=== PATIENT | female | born 1980 | race Caucasian/White ===

== ENCOUNTER → 2018-12-20 | Outpatient (CLI) | payer BC ==
--- NOTE | 2018-12-20 12:22 | CT ---
EXAMINATION TYPE: CT abdomen pelvis wo con DATE OF EXAM: 12/20/2018 COMPARISON: None HISTORY: 38-year-old female Lower abdominal pain CT DLP: 314.5 mGycm. Automated exposure control for dose reduction was used. TECHNIQUE: Contiguous axial scanning of the abdomen and pelvis without IV contrast. Coronal and sagit kel reconstructions performed. FINDINGS: Heart normal size without pericardial effusion. Lung bases clear without pleural effusion Noncontrast appearance of the liver, adrenal glands, kidneys, spleen, and pancreas show no gross abno rmality. 9 mm gallstone. No abnormal gallbladder distention. Small fatty umbilical hernia. No dilated small bowel, free fluid, or free air. Scattered nonenlarged and borderline sized mesenteric lymph nodes measuring up to 6 mm. Scattered non enlarged and borderline sized retroperitoneal lymph nodes measuring up to 7 mm. No dilated small bowel, free fluid, or free air. Portions of a normal appendix are visualized, coronal image 29. The distal aspect of the appendix ext ends into the right adnexa and becomes obscured by adjacent structures. Some fat stranding noted within the lower abdomen and pelvis. Muscle conference or bladder wall thick ening. Uterus anteverted. Possible thickening in the right adnexa. There is some right adnexal and cu l-de-sac mild to moderate free fluid. Left ovary appears overall normal on this noncontrast study. Bones: No osseous destructive process. IMPRESSION: 1. There seems to be inflammation centered in the lower abdomen and pelvis. The exact origin of the inflammation is not clearly delineated. There seems to be some thickening in the right adnexa. Consid er the possibility of a right tubo-ovarian etiology in the setting of PID. The distal aspect of the a ppendix also extends into this region and becomes obscured. The proximal portion of the appendix is s een and appears normal. 2. Circumferential bladder wall thickening. Correlate to exclude cystitis. 3. Mild to moderate right-sided cul-de-sac free fluid. 4. Scattered nonenlarged and borderline sized lymph nodes likely reactive measuring up to 7 mm. 5. 9 mm gallstone.
== END | disposition home or self-care (01) ==
LOC: RADCTMAIN 11:24
PROVIDERS: ATTEND Physician Assistant
DX: N32.89 Other specified disorders of bladder (principal)
CPT/HCPCS: 74176

== ENCOUNTER 2018-12-30 13:12 | Emergency (ER) | payer BC ==
[2018-12-30 13:36] VITALS: RESP 18
[2018-12-30] MEDS ORDERED: MORPHINE SULFATE 2 MG/ML SYRINGE IVP STA (14:38)
[2018-12-30] MEDS ORDERED: diphenhydrAMINE 50 MG/ML 1 ML VIAL IVP STA (14:51)
[2018-12-30 15:01] LABS: Basophils % (A) 1 %; Eosinophils # (A) 0.1 k/uL (0-0.7); Eosinophils % (A) 1 %; HCT 39.2 % (34.0-46.0); HGB 13.3 gm/dL (11.4-16.0); Lymphocytes # (A) 2.6 k/uL (1.0-4.8); Lymphocytes % (A) 33 %; MCH 28.8 pg (25.0-35.0); MCHC 33.9 g/dL (31.0-37.0); MCV 84.9 fL (80.0-100.0); Mean Platelet Volume 6.1; Monocytes # (A) 0.4 k/uL (0-1.0); Monocytes % (A) 5 %; Neutrophils # (A) 4.5 k/uL (1.3-7.7); Neutrophils % (A) 58 %; Platelet Count 436 k/uL (150-450); RBC 4.62 m/uL (3.80-5.40); RDW 13.4 % (11.5-15.5); WBC 7.8 k/uL (3.8-10.6)
[2018-12-30 15:09] LABS: ALT 25 U/L (9-52); AST 21 U/L (14-36); African American GFR (CKD) >90 (>60 ml/min/1.73 sqM); Albumin 4.3 g/dL (3.5-5.0); Alkaline Phosphatase 74 U/L (38-126); Anion Gap 9 mmol/L; Blood Urea Nitrogen 15 mg/dL (7-17); Calcium 9.7 mg/dL (8.4-10.2); Carbon Dioxide 27 mmol/L (22-30); Chloride 105 mmol/L (98-107); Glucose 88 mg/dL (74-99); Non-African American GFR(CKD) >90 (>60 ml/min/1.73 sqM); Sodium 141 mmol/L (137-145); Total Bilirubin 0.2 mg/dL (0.2-1.3); Total Protein 7.7 g/dL (6.3-8.2)
[2018-12-30] MEDS ORDERED: SODIUM CHLORIDE 0.9% 1,000 ML IV ONE (15:29)
[2018-12-30] MEDS ORDERED: SODIUM CHLORIDE 0.9% 500 ML 500 ML IV ONE (15:29)
[2018-12-30] MEDS ORDERED: SODIUM CHLORIDE 0.9% 1,000 ML IV SCH (15:30)
--- NOTE | 2018-12-30 16:07 | US ---
EXAMINATION TYPE: US pelvic complete plus Dopplers DATE OF EXAM: 12/30/2018 COMPARISON: CT 2019 CLINICAL HISTORY: 38-year-old female r/o tubo ovarian abscess. Pelvic pain and irregular bleeding x 2 weeks, 5, para 4, 1, history of 4 c-sections and tubal ligation. TECHNIQUE: Transvaginal ER exam. Color Doppler and spectral waveform analysis of the ovarian arteries and veins. Date of LMP: 3+ weeks ago FINDINGS: EXAM MEASUREMENTS: Uterus: 9.3 x 4.8 x 4.9 cm Endometrial Stripe: 0.8 cm Right Ovary: 3.6 x 1.9 x 2.3 cm Left Ovary: 2.4 x 1.3 x 2.1 cm 1. Uterus: Small scar. Anteverted. 2. Endometrium: Heterogeneous fluid within the endocervical canal. Otherwise, normal thickness strip e. 3. Right Ovary: 1.5 x 1.1 x 1.3cm hypoechoic area, likely corpus luteum. 4. Left Ovary: wnl Spectral, color and waveform doppler imaging shows good arterial and venous flow within the ovaries ; there is no evidence for ovarian torsion. 5. Bilateral Adnexa: wnl 6. Posterior cul-de-sac: wnl IMPRESSION: 1. Small scar. Some heterogeneous fluid within the endocervical canal, probably some hemorr hagic debris.. 2. No sonographic evidence for ovarian torsion. Suspect a 1.5 cm corpus luteum in the right ovary.
--- NOTE | 2018-12-30 16:44 | ED ---
Abdominal Pain HPI - General Chief Complaint: Abdominal Pain Stated Complaint: POSS SEPSIS Time Seen by Provider: 12/30/18 14:14 Source: patient Mode of arrival: ambulatory Limitations: no limitations - History of Present Illness Initial Comments: 38 or female presenting for rule out sepsis and pelvic pain 2 weeks. Patient states that she was diagnosed with PID approximately 10 days ago. She states she has been on antibiotics Flagyl and doxycycline and has been given one IM dose of ceftriaxone. Patient states all STD testing was negative. She states cultures were positive for group A group B strep. Patient denies fevers. She states she has had vaginal bleeding for 2 weeks. She states she did not have large amount of discharge, until she began taking the antibiotics. Patient states she continues to have vaginal bleeding and pelvic pain b/l. Denies unilateral pain. Denies upper abdominal pain, diarrhea, vomiting, decreased appeptite. When patient went to her PCP today she was told she needed to come to the ER given symptoms were lasting long and she could become septic. Patient appears well, nontoxic is acceptable VS upon arrival no tachycardia, no fever. BP stable. Patient has had previous tubal ligation denies . - Related Data Previous Rx's Medication Instructions Recorded Cephalexin [Keflex] 500 mg PO Q12HR 5 Days #10 cap 12/30/18 Allergies Allergy/AdvReac Type Severity Reaction Status Date / Time No Known Allergies Allergy Verified 12/30/18 13:30 Review of Systems ROS Statement: Those systems with pertinent positive or pertinent negative responses have been documented in the HPI. ROS Other: All systems not noted in ROS Statement are negative. Past Medical History Past Medical History: No Reported History History of Any Multi-Drug Resistant Organisms: None Reported Past Surgical History: Section Additional Past Surgical History / Comment(s): c section x 4 Past Psychological History: No Psychological Hx Reported Smoking Status: Never smoker Past Alcohol Use History: None Reported Past Drug Use History: None Reported General Exam - General Exam Comments Initial Comments: General: The patient is awake and alert, in no distress, and does not appear acutely ill. Eye: +3 mm pupils are equal, round and reactive to light, extra-ocular movements are intact. No nystagmus. There is normal conjunctiva bilaterally. No signs of icterus. Ears, nose, mouth and throat: There are moist mucous membranes and no oral lesions. Neck: The neck is supple, there is no tenderness or JVD. Cardiovascular: There is a regular rate and rhythm. No murmur, rub or gallop is appreciated. Respiratory: Lungs are clear to auscultation, respirations are non-labored, breath sounds are equal. No wheezes, stridor, rales, or rhonchi. Gastrointestinal: Soft, non-distended, mild tenderness to palpation of the lower pelvic region slightly increased on left side in comparison with right, no McBUrneys pouint tenderness and remaining abdomen is without pain, masses or organomegaly noted. There is no rebound or guarding present. No CVA tenderness. Bowel sounds are unremarkable. Pelvic exam revealed no discharge, scant amount of blood cervical os closed. No cervical motion tenderness and minimal left- sided adnexal tenderness no right-sided tenderness. Musculoskeletal: Normal ROM, no tenderness. Strength 5/5. Sensation intact. Pulses equal bilaterally 2+. Neurological: A&O x 3. CN II-XII intact grossly, There are no obvious motor or sensory deficits. Coordination appears grossly intact. Speech is normal. Skin: Skin is warm and dry and no rashes or lesions are noted. Psychiatric: Cooperative, appropriate mood & affect, normal judgment. Limitations: no limitations Course Vital Signs 12/30/18 12/30/18 13:30 17:02 Temperature 97.8 F 98.4 F Pulse Rate 88 78 Respiratory 18 18 Rate Blood Pressure 108/74 111/73 O2 Sat by Pulse 99 100 Oximetry Medical Decision Making - Medical Decision Making 38yo female presenting for pelvic pain and vaginal bleeding 2 weeks. Sent to rule out sepsis. Patient is afebrile no tachycardia blood pressure stable with normal white count patient is minimal tenderness on examination. Pelvic exam revealed vaginal bleeding otherwise no findings I feel this is more consistent with dysfunctional uterine bleeding as patient did she is not supposed to start menstruation for 2 weeks. I review patient's previous imaging studies there is no tenderness at McBurney's point, patient eating and room afebrile and no guarding or rebound tenderness. 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 Discussed case wtih Dr. Quiles who reviewd imaging and labs, discussing history and he is agreeable with discharge at this time. - Lab Data Result diagrams: 12/30/18 14:48 12/30/18 14:48 Lab Results 12/30/18 12/30/18 12/30/18 Range/Units 14:48 14:48 14:48 WBC 7.8 (3.8-10.6) k/uL RBC 4.62 (3.80-5.40) m/uL Hgb 13.3 (11.4-16.0) gm/dL Hct 39.2 (34.0-46.0) % MCV 84.9 (80.0-100.0) fL MCH 28.8 (25.0-35.0) pg MCHC 33.9 (31.0-37.0) g/dL RDW 13.4 (11.5-15.5) % Plt Count 436 (150-450) k/uL Neutrophils % 58 % Lymphocytes % 33 % Monocytes % 5 % Eosinophils % 1 % Basophils % 1 % Neutrophils # 4.5 (1.3-7.7) k/uL Lymphocytes # 2.6 (1.0-4.8) k/uL Monocytes # 0.4 (0-1.0) k/uL Eosinophils # 0.1 (0-0.7) k/uL Basophils # 0.0 (0-0.2) k/uL Sodium 141 (137-145) mmol/L Potassium 4.0 (3.5-5.1) mmol/L Chloride 105 (98-107) mmol/L Carbon Dioxide 27 (22-30) mmol/L Anion Gap 9 mmol/L BUN 15 (7-17) mg/dL Creatinine 0.81 (0.52-1.04) mg/dL Est GFR (CKD-EPI)AfAm >90 (>60 ml/min/1.73 sqM) Est GFR (CKD-EPI)NonAf >90 (>60 ml/min/1.73 sqM) Glucose 88 (74-99) mg/dL Plasma Lactic Acid Edgard (0.7-2.0) mmol/L Calcium 9.7 (8.4-10.2) mg/dL Total Bilirubin 0.2 (0.2-1.3) mg/dL AST 21 (14-36) U/L ALT 25 (9-52) U/L Alkaline Phosphatase 74 (38-126) U/L Total Protein 7.7 (6.3-8.2) g/dL Albumin 4.3 (3.5-5.0) g/dL Urine Color Urine Appearance (Clear) Urine pH (5.0-8.0) Ur Specific [place] (1.001-1.035) Urine Protein (Negative) Urine Glucose (UA) (Negative) Urine Ketones (Negative) Urine Blood (Negative) Urine Nitrite (Negative) Urine Bilirubin (Negative) Urine Urobilinogen (<2.0) mg/dL Ur Leukocyte Esterase (Negative) Urine RBC (0-5) /hpf Urine WBC (0-5) /hpf Ur Squamous Epith Cells (0-4) /hpf Urine Bacteria (None) /hpf Urine Mucus (None) /hpf Urine HCG, Qual Not Detected (Not Detectd) Trichomonas Ag (Rapid) (Negative) 12/30/18 12/30/18 12/30/18 Range/Units 14:48 14:48 14:48 WBC (3.8-10.6) k/uL RBC (3.80-5.40) m/uL Hgb (11.4-16.0) gm/dL Hct (34.0-46.0) % MCV (80.0-100.0) fL MCH (25.0-35.0) pg MCHC (31.0-37.0) g/dL RDW (11.5-15.5) % Plt Count (150-450) k/uL Neutrophils % % Lymphocytes % % Monocytes % % Eosinophils % % Basophils % % Neutrophils # (1.3-7.7) k/uL Lymphocytes # (1.0-4.8) k/uL Monocytes # (0-1.0) k/uL Eosinophils # (0-0.7) k/uL Basophils # (0-0.2) k/uL Sodium (137-145) mmol/L Potassium (3.5-5.1) mmol/L Chloride (98-107) mmol/L Carbon Dioxide (22-30) mmol/L Anion Gap mmol/L BUN (7-17) mg/dL Creatinine (0.52-1.04) mg/dL Est GFR (CKD-EPI)AfAm (>60 ml/min/1.73 sqM) Est GFR (CKD-EPI)NonAf (>60 ml/min/1.73 sqM) Glucose (74-99) mg/dL Plasma Lactic Acid Edgard 1.1 (0.7-2.0) mmol/L Calcium (8.4-10.2) mg/dL Total Bilirubin (0.2-1.3) mg/dL AST (14-36) U/L ALT (9-52) U/L Alkaline Phosphatase (38-126) U/L Total Protein (6.3-8.2) g/dL Albumin (3.5-5.0) g/dL Urine Color Red Urine Appearance Turbid H (Clear) Urine pH 5.0 (5.0-8.0) Ur Specific [place] 1.024 (1.001-1.035) Urine Protein 1+ H (Negative) Urine Glucose (UA) Negative (Negative) Urine Ketones Negative (Negative) Urine Blood Large H (Negative) Urine Nitrite Negative (Negative) Urine Bilirubin Negative (Negative) Urine Urobilinogen <2.0 (<2.0) mg/dL Ur Leukocyte Esterase Small H (Negative) Urine RBC >182 H (0-5) /hpf Urine WBC 41 H (0-5) /hpf Ur Squamous Epith Cells 25 H (0-4) /hpf Urine Bacteria Moderate H (None) /hpf Urine Mucus Many H (None) /hpf Urine HCG, Qual (Not Detectd) Trichomonas Ag (Rapid) Negative (Negative) Disposition Clinical Impression: Pelvic pain Disposition: HOME SELF-CARE Condition: Good Instructions (If sedation given, give patient instructions): Pelvic Pain in Women (ED) Additional Instructions: Please use medication as discussed. Please follow-up with family doctor in the next 2 days, and OBGYN in next week. Please return to emergency room if the symptoms increase or worsen or for any other concerns. Prescriptions: Cephalexin [Keflex] 500 mg PO Q12HR 5 Days #10 cap Is patient prescribed a controlled substance at d/c from ED?: No Referrals: Joe Haider MD [Primary Care Provider] - 1-2 days Time of Disposition: 16:49
[2018-12-30] MEDS ORDERED: ACET/COD 300 MG/30 MG STARTER PACK 6 TAB BTL PO STA (16:49)
[2018-12-30 17:00] LABS: Appearance,Urine Turbid (Clear); Bacteria,Urine Moderate /hpf; Bilirubin,Urine Negative (Negative); Blood,Urine Large (Negative); Color,Urine Red; Glucose,Urine (UA) Negative (Negative); Ketones,Urine Negative (Negative); Leukocyte Esterase,Urine Small (Negative); Mucus,Urine Many /hpf; Nitrite,Urine Negative (Negative); Protein,Urine 1+ (Negative); RBC,Urine >182 /hpf (0-5); Specific Gravity,Urine 1.024 (1.001-1.035); Squamous Epithelial Cell,Urine 25 /hpf (0-4); Urobilinogen,Urine <2.0 mg/dL (<2.0); WBC,Urine 41 /hpf (0-5)
[2018-12-30 17:03] VITALS: BP 111/73; PULSE 78; TEMP 98.4
[2018-12-31 13:46] LABS: C. trachomatis,PCR Negative (Neg,Equiv); Chlamydia trachomatis Source Vagina
[2018-12-31 14:00] LABS: N. gonorrhoeae,PCR Negative (Neg,Equiv); Neisseria Source Vagina
== END 2018-12-30 17:18 | disposition home or self-care (01) ==
LOC: EC 13:12
DX: R10.2 Pelvic and perineal pain (principal); N93.9 Abnormal uterine and vaginal bleeding, unspecified; N73.9 Female pelvic inflammatory disease, unspecified; B95.1 Streptococcus, group B, as the cause of diseases classified elsewhere; Z98.51 Tubal ligation status; Z98.890 Other specified postprocedural states
CPT/HCPCS: 36415; 80053; 83605; 85025; 81001; 81025; 87040; 87808; 87491; 87591; 87070; 93975; 76830; 99284; 96374; 96375; 96361; J1200; J2270

== ENCOUNTER → 2020-01-21 | Outpatient (CLI) | payer OTHER ==
--- NOTE | 2020-01-21 11:40 | US ---
EXAMINATION TYPE: US pelvic complete DATE OF EXAM: 01/21/2020 COMPARISON: US 12/30/2018 CLINICAL HISTORY: R10.2 pelvic pain, N92.8. TECHNIQUE: . Transabdominal sonographic images of the pelvis were acquired. Patient did not want tr ansvaginal imaging Date of LMP: 01/19/2020 EXAM MEASUREMENTS: Uterus: 9.1 x 4.5 x 5.1 cm Endometrial Stripe: 0.5 cm Right Ovary: 3.0 x 1.6 x 1.6 cm Left Ovary: 2.2 x 1.8 x 1.5 cm 1. Uterus: Anteverted wnl 2. Endometrium: wnl 3. Right Ovary: wnl 4. Left Ovary: wnl 5. Bilateral Adnexa: wnl 6. Posterior cul-de-sac: wnl IMPRESSION: Normal pelvic ultrasound
== END | disposition home or self-care (01) ==
LOC: RADUSWWP 07:03
PROVIDERS: ATTEND Obstetrics & Gynecology
DX: R10.2 Pelvic and perineal pain (principal); N93.8 Other specified abnormal uterine and vaginal bleeding
CPT/HCPCS: 76856

== ENCOUNTER → 2021-12-13 | Outpatient (CLI) | payer BC ==
--- NOTE | 2021-12-13 09:02 | MM ---
Reason for Exam: Clinical finding. Baseline mammogram. Indicated Problems: Pain of the right side (Global) for 1 Year(s) : pt has rt breast itchiness/pain for 1 year, dr cook. Patient History: Menarche at age 13. First Full-Term at age 24. Patient has history of breast feeding. Patient used Hormonal Contraceptives for 4 years. Last menstrual period: 11/14/2021 Risk Values: Cassy 5 year model risk: 0.5%. NCI Lifetime model risk: 9.9%. Prior Study Comparison: Patient's first Mammogram. Tissue Density: The breast tissue is heterogeneously dense. This may lower the sensitivity of mammography. Findings: Analyzed By CAD. Pattern appears symmetrical. There are some small nodules in the upper outer aspect right breast could be small intramammary lymph nodes. The nodularity may be present within the upper outer left mid breast. No suspicious spiculated or lobular masses, cluster microcalcifications, architectural distortion, or other secondary signs of malignancy are radiographically apparent. Overall Assessment: Incomplete: need additional imaging evaluation, BI-RAD 0 Management: Diagnostic Breast Ultrasound of both breasts. A clinical breast exam by your physician is recommended on an annual basis and results should be correlated with mammographic findings. This exam should not preclude additional follow-up of suspicious palpable abnormalities. Results were given to the patient verbally at the time of exam. Electronically signed and approved by: Navdeep Angel D.O. Radiologis
--- NOTE | 2021-12-13 09:58 | USB ---
Reason for Exam: Clinical finding. Patient History: Menarche at age 13. First Full-Term at age 24. Patient has history of breast feeding. Patient used Hormonal Contraceptives for 4 years. Risk Values: Cassy 5 year model risk: 0.5%. NCI Lifetime model risk: 9.9%. Technique: Method: Whole Breast Handheld. Findings: The whole breast of both breasts, the axilla of both breasts and the retroareolar of both breasts were scanned. No solid or cystic masses are identified. No nodularity to correspond to mammographic findings is evident. Overall Assessment: Negative, BI-RAD 1 Management: Diagnostic Mammogram of both breasts in 6 months. A clinical breast exam by your physician is recommended on an annual basis and results should be correlated with mammographic findings. This exam should not preclude additional follow-up of suspicious palpable abnormalities. ??Results were given to the patient verbally at the time of exam. Electronically signed and approved by: Navdeep Angel D.O. Radiologis
== END | disposition home or self-care (01) ==
LOC: RADMAMWWP 08:19
PROVIDERS: ATTEND Family Medicine
DX: N64.4 Mastodynia (principal)
CPT/HCPCS: 77062; 77066

== ENCOUNTER 2022-01-23 06:21 | Day surgery (SDC) | payer BC ==
[2022-01-19 11:56] VITALS: BMI 26.2
[~2022-01-23 06:21] MED LIST: ACETAMINOPHEN TAB 500 MG TAB PO PRN; DEXAMETHASONE SOD PHOSPHATE 4 MG/ML 1 ML VIAL IV ONE; HEPARIN SODIUM,PORCINE/PF 5,000 UNIT/0.5 ML SYRINGE SQ PRN; LACTATED RINGERS 1,000 ML IV SCH; MIDAZOLAM 2 MG/2 ML VIAL IV PRN; ONDANSETRON 4 MG/2 ML VIAL IVP ONE; SCOPOLAMINE 1 MG/72 HR PATCH TRANSDERM ONE
[2022-01-23] MEDS ORDERED: DEXAMETHASONE SOD PHOSPHATE 4 MG/ML 1 ML VIAL IVP ONE (07:16)
[2022-01-23] MEDS ORDERED: ONDANSETRON 4 MG/2 ML VIAL IVP ONE ×2 (07:16→09:46)
[2022-01-23 07:23] LABS: Glucose,Whole Blood 91 mg/dL (70-110)
[2022-01-23] MEDS ORDERED: ROCURONIUM 10 MG/ML (5 ML VIAL) IV ONE (07:24)
[2022-01-23] MEDS ORDERED: NEOSTIGMINE 1 MG/ML 10 ML VIAL ONE (07:24)
[2022-01-23] MEDS ORDERED: SUCCINYLCHOLINE CHLORIDE 200 MG/10 ML VIAL IV ONE (07:24)
[2022-01-23] MEDS ORDERED: GLYCOPYRROLATE 0.2 MG/ML 2 ML VIAL ONE (07:24)
[2022-01-23] MEDS ORDERED: PROPOFOL 10 MG/ML 20 ML VIAL IV ONE (07:24)
[2022-01-23] MEDS ORDERED: fentaNYL (PF) 50 MCG/ML 2 ML AMP ONE (07:24)
[2022-01-23] MEDS ORDERED: MIDAZOLAM 2 MG/2 ML VIAL ONE (07:24)
[2022-01-23] MEDS ORDERED: LIDOCAINE 2% INJ 20 MG/ML (2 ML VIAL) ONE (07:24)
[2022-01-23] MEDS ORDERED: KETOROLAC 15 MG/ML 1 ML VIAL ONE (07:24)
[2022-01-23] MEDS ORDERED: BUPIVACAIN-EPI 0.25%-1:200,000 30 ML VIAL SQ ONE ×3 (07:30→07:51)
--- NOTE | 2022-01-23 07:30 | P.GSHP ---
History of Present Illness H&P Date: 01/23/22 Chief Complaint: Chronic cholecystitis 41-year-old female here today for elective cholecystectomy. Patient with intermittent pain quadrant radiating from back to front. Some nausea but no vomiting. History of previous gallstones. Recent labs normal. 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 History of Any Multi-Drug Resistant Organisms: None Reported Past Surgical History: Section Additional Past Surgical History / Comment(s): c section x 4 Past Anesthesia/Blood Transfusion Reactions: No Reported Reaction Past Psychological History: No Psychological Hx Reported Smoking Status: Never smoker Past Alcohol Use History: Occasional Past Drug Use History: None Reported - Past Family History Mother Family Medical History: No Reported History Medications and Allergies Home Medications Medication Instructions Recorded Confirmed Type Minocycline [Minocin] 50 mg PO DAILY 01/19/22 01/23/22 History Allergies Allergy/AdvReac Type Severity Reaction Status Date / Time No Known Allergies Allergy Verified 01/23/22 07:08 Surgical - Exam Vital Signs Temp Pulse Resp BP Pulse Ox 97.0 F L 94 14 114/72 98 01/23/22 06:51 01/23/22 06:51 01/23/22 06:51 01/23/22 06:51 01/23/22 06:51 Physical exam: General: Well-developed, well-nourished HEENT: Normocephalic, sclerae nonicteric Abdomen: Nontender, nondistended Extremities: No edema Neuro: Alert and oriented Assessment and Plan (1) Chronic cholecystitis Narrative/Plan: Will proceed with laparoscopic cholecystectomy, possible open at this time. Risks of bleeding, infection, bile leak, bile duct injury, retained common bile duct stone, trocar injury, conversion to an open procedure, hernia, anesthesia related complications were reviewed. The patient understands and wishes to proceed. Current Visit: Yes Status: Acute Code(s): K81.1 - CHRONIC CHOLECYSTITIS SNOMED Code(s): 66000782
--- NOTE | 2022-01-23 08:18 | P.OP ---
Date of Procedure: 01/23/22 Procedure(s) Performed: PREOPERATIVE DIAGNOSIS: Chronic cholecystitis POSTOPERATIVE DIAGNOSIS: Same PROCEDURE: Laparoscopic cholecystectomy SURGEON: Elizabeth EBL: Minimal see anesthesia record ANESTHESIA: Gen. COMPLICATIONS: None OPERATIVE PROCEDURE: The patient was brought and placed on the operating room table in the supine position. The patient was placed under general anesthesia at that time. The abdomen was prepped and draped in the usual sterile fashion. A small vertical infraumbilical incision was made. The fascia was grasped with the Heriberto forceps. The fascia was retracted anteriorly. The Veress needle was advanced into the peritoneal cavity. The saline drop test was normal. Insufflation took place up to 15 mmHg. A 5 mm optical trocar was advanced and the peritoneal cavity. 2 additional 5 mm trochars were placed in the right upper quadrant under direct visualization. A 12 mm trocar was advanced into the epigastric incision site. The gallbladder was retracted superiorly and laterally. The peritoneum overlying the infundibulum was bluntly dissected. The patient's cystic duct was visualized. The junction between the cystic duct common and hepatic duct was identified. The critical view of safety was achieved after blunt dissection. The cystic duct was then divided after placement of 3 12 mm clips on the patient's side and one on the specimen side. The cystic artery was identified and clipped as well. A small vessel was seen along the gallbladder fossa and clipped as well. The gallbladder was then removed from the liver bed using electrocautery. The gallbladder was then removed from the epigastric trocar site with an Endo Catch bag. The gallbladder fossa was irrigated with saline. There was no evidence of any bleeding or biliary drainage seen. The fascia at the 12 millimeter site was closed using a Jason-Lupillo 0 Vicryl stitch. The trochars were then removed. The skin at all 4 sites was closed using a 4-0 Monocryl stitch. Skin glue was utilized on the incision sites. At the end of this procedure the sponge and needle counts were correct. DISPOSITION: Stable to the recovery room
[2022-01-23] MEDS: HYDROmorphone 0.5 MG/0.5 ML SYRINGE IVP PRN ×3 (08:28→08:48)
[2022-01-23 08:32] VITALS: RESP 16; TEMP 97.7
[2022-01-23] MEDS ORDERED: traMADol 50 MG TAB PO SCH (09:00)
[2022-01-23] MEDS ORDERED: ONDANSETRON 4 MG/2 ML VIAL ONE (09:45)
[2022-01-23] MEDS ORDERED: LACTATED RINGERS 1,000 ML IV ONE (09:45)
[2022-01-23 10:12] VITALS: PULSE 93
[2022-01-23 11:04] VITALS: BP 108/73
[2022-01-23] MEDS ORDERED: traMADol 50 MG TAB PO ONE (11:40)
[2022-01-23] MEDS ORDERED: ACETAMINOPHEN TAB 325 MG TAB PO SCH (12:00)
[2022-01-23] MEDS ORDERED: IBUPROFEN 600 MG TAB PO SCH (15:00)
== END 2022-01-23 12:17 | disposition home or self-care (01) ==
LOC: OR 06:21
PROVIDERS: ATTEND Surgery
DX: K81.1 Chronic cholecystitis (principal); Z98.890 Other specified postprocedural states; Z83.3 Family history of diabetes mellitus; L71.9 Rosacea, unspecified; Z79.899 Other long term (current) drug therapy
CPT/HCPCS: 81025; 88304; 47562; J2250; J0330; J1100; J2710; J0690; J2405; J3010; J1885; J2704; J1170; J1790; J1644; J2001

== ENCOUNTER → 2023-06-08 | Outpatient (CLI) | payer BC ==
--- NOTE | 2023-06-11 14:43 | MM ---
Reason for Exam: Screening (asymptomatic). Last mammogram was performed 1 year(s) and 5 month(s) ago. Patient History: Menarche at age 13. First Full-Term at age 24. Premenopausal. Patient has history of breast feeding. Patient used Hormonal Contraceptives for 4 year. Last menstrual period: 05/23/2023 Risk Values: Cassy 5 year model risk: 0.5%. NCI Lifetime model risk: 9.9%. Prior Study Comparison: 12/13/2021 Bilateral MG 3D diag mammo w/cad REGINO, [facility]. Tissue Density: The breasts are heterogeneously dense, which may obscure small masses. Findings: Analyzed By CAD. Right breast: There is no suspicious group of microcalcifications or new suspicious mass. Left breast: There is no suspicious group of microcalcifications or new suspicious mass. Overall Assessment: Negative, BI-RAD 1 Management: Screening Mammogram of both breasts in [address] [facility] will attempt to contact patient to return for supplemental views and ultrasound if indicated. Patient should continue monthly self-breast exams. A clinical breast exam by your physician is recommended on an annual basis. This exam should not preclude additional follow-up of suspicious palpable abnormalities. Note on Cassy scores and lifetime risk: 1. A Cassy score greater than 3% is considered moderate risk. If this is the case, consider specialist referral to assess eligibility for a risk reducing agent. 2. If overall lifetime risk for the development of breast cancer is 20% or higher, the patient may qualify for future screening with alternating mammogram and breast MRI. Electronically signed and approved by: Moustapha Bell DO
== END | disposition home or self-care (01) ==
LOC: RADMAMWWP 10:07
PROVIDERS: ATTEND Family Medicine
DX: Z12.31 Encounter for screening mammogram for malignant neoplasm of breast (principal); Z92.0 Personal history of contraception
CPT/HCPCS: 77063; 77067

== ENCOUNTER → 2023-07-06 | Outpatient (CLI) | payer BC ==
--- NOTE | 2023-07-06 13:01 | CA ---
Exercise Stress Test Report Name: Arlene Kay Exam Date: 07/06/2023 09:22 Exam Location: [facility] Ht (in): 63 Wt (lb): 162 BSA: 1.77 Ordering Phys: Joe Haider MD Referring Phys: Lauren Farris PAC Technologist: Xavier Benavidez Age: 42 Gender: F : 1980 Procedure CPT: Indications: R07.89 chest pain ICD-10 Codes: Patient History: Medications: FLUXATINE, MINACYCLINE Meds past 24 hrs: Pretest Chest Pain: STRESS TEST Galen Protocol Exercise Duration (min:sec): 10:[address] Depressions (mm): Angina Score: Dorsey Score: Resting HR (bpm): 78 Peak HR (bpm): 182 Resting BP (mmHg): 102 / 73 Peak BP (mmHg): 140 / 66 MPHR: 180 Target HR: 153 % MPHR: 101 METS: 12.1 Total Dose: Peak Dose: Atropine: Double Product: 14273 BP Response: Stress Termination: Reached target heart rate Stress Symptoms: NO SYMPTOMS Stress Summary: ECG ANALYSIS Resting ECG: Stress ECG: CONCLUSIONS Patient underwent exercise stress EKG with a Galen protocol treadmill stress test. Patient exercised into Stage 3 for a total of 10 minutes and 29 seconds reaching a total of 12.1 METS. Patient's maximum heart rate was 182 which represented 100 % age-predicted maximum heart rate. Stress EKG findings: At baseline patient's EKG showed normal sinus rhythm, normal axis, no significant ST or T wave abnormalities. At peak exercise, EKG showed no significant change from baseline. Conclusions: 1. Normal EKG response to exercise without evidence of inducible ischemia. 2. Good exercise capacity. Dr. Kvng Espinoza DO (Electronically Signed) Final Date: 06 Jul 2023 13:00
== END | disposition home or self-care (01) ==
LOC: RADNMMAIN 08:52
PROVIDERS: ATTEND Family Medicine
DX: R07.89 Other chest pain (principal)
CPT/HCPCS: 93017

== ENCOUNTER → 2024-02-29 | Outpatient (CLI) | payer BC ==
[2024-02-29 10:36] LABS: ALT 14 U/L (8-44); AST 16 U/L (13-35); Albumin 4.4 g/dL (3.8-4.9); Albumin/Globulin Ratio 1.63 Ratio (1.60-3.17); Alkaline Phosphatase 120 U/L (41-126); Blood Urea Nitrogen 16.8 mg/dL (9.0-27.0); Calcium 9.7 mg/dL (8.7-10.3); Carbon Dioxide 24.7 mmol/L (21.6-31.8); Chloride 103 mmol/L (96-109); Chol/HDL Ratio 6.26 Ratio; Globulin 2.7 g/dL (1.6-3.3); Glucose 101 mg/dL (70-110); LDL Cholesterol,Calculated 114.2 mg/dL (0.0-131.0); Potassium 4.4 mmol/L (3.5-5.5); Sodium 138 mmol/L (135-145); Total Bilirubin 0.2 mg/dL (0.3-1.2); Total Protein 7.1 g/dL (6.2-8.2)
[2024-02-29 11:29] LABS: Basophils # (A) 0.04 X 10*3/uL (0.00-0.10); Basophils % (A) 0.4 %; Eosinophils # (A) 0.13 X 10*3/uL (0.04-0.35); Eosinophils % (A) 1.4 %; HCT 42.7 % (37.2-46.3); HGB 13.7 g/dL (12.0-15.0); Lymphocytes # (A) 1.95 X 10*3/uL (0.90-5.00); MCH 28.8 pg (27.0-32.0); MCHC 32.1 g/dL (32.0-37.0); MCV 89.7 FL (80.0-97.0); Mean Platelet Volume 11.2 FL (9.5-12.2); Monocytes # (A) 0.79 X 10*3/uL (0.20-1.00); Monocytes % (A) 8.5 %; NRBC Per 100 WBC 0 X 10*3/uL (0.00-0.01); Neutrophils # (A) 6.29 X 10*3/uL (1.80-7.70); Neutrophils % (A) 67.8 %; Platelet Count 304 X 10*3/uL (140-440); RBC 4.76 X 10*6/uL (4.10-5.20); RDW 12.6 % (11.5-14.5); WBC 9.28 X 10*3/uL (4.50-10.00)
== END | disposition home or self-care (01) ==
LOC: LABWHC1 07:33
PROVIDERS: ATTEND Physician Assistant
DX: E78.2 Mixed hyperlipidemia (principal); E11.65 Type 2 diabetes mellitus with hyperglycemia; F43.23 Adjustment disorder with mixed anxiety and depressed mood; Z79.899 Other long term (current) drug therapy
CPT/HCPCS: 36415; 80053; 80061; 84443; 85025

== ENCOUNTER → 2024-07-29 | Outpatient (CLI) | payer BC ==
--- NOTE | 2024-07-29 10:48 | XR ---
EXAMINATION TYPE: XR knee complete LT DATE OF EXAM: 07/29/2024 10:30 AM COMPARISON: None CLINICAL INDICATION: Female, 43 years old with history of [id number] LT KNEE PAIN; [facility], pain TECHNIQUE: XR knee complete LT 3 views submitted. FINDINGS: No evidence of any acute osseous pathology or soft tissue swelling. IMPRESSION: 1. No acute osseous pathology. [facility], , 07/29/2024 10:46 AM
== END | disposition home or self-care (01) ==
LOC: RADXRYALE 10:17
PROVIDERS: ATTEND Physician Assistant
DX: M25.562 Pain in left knee (principal)